=== PATIENT | female | born 1980 | race American Indian/Alaskan Native ===

== ENCOUNTER 2020-10-19 20:40 | Inpatient (IN) | payer SELFPAY ==
[2020-10-19 21:33] LABS: Basophils % (Auto) 0.3 % (0.0-1.8); Eosinophils # (Auto) 0.2 K/mm3 (0.0-0.4); Eosinophils % (Auto) 1.2 % (0.0-4.3); Hematocrit 42.9 % (30.3-42.9); Hemoglobin 13.8 gm/dl (10.1-14.3); Lymphocytes # (Auto) 2.9 K/mm3 (1.2-5.4); Lymphocytes % (Auto) 20.2 % (13.4-35.0); Mean Corpuscular HGB Conc 32 % (30-34); Mean Corpuscular Volume 79 fl (79-97); Monocytes # (Auto) 0.8 K/mm3 (0.0-0.8); Monocytes % (Auto) 5.6 % (0.0-7.3); Platelet Count 402 K/mm3 (140-440); Red Blood Count 5.45 M/mm3 (3.65-5.03); Red Cell Distribution Width 17.1 % (13.2-15.2)
[2020-10-19 21:53] LABS: Calcium 9.5 mg/dL (8.4-10.2)
[2020-10-19 21:54] LABS: Albumin 4.3 g/dL (3.9-5)
[2020-10-19] MEDS ORDERED: ONDANSETRON 4 MG/2 ML INJ IV ONE (22:25)
[2020-10-19] MEDS ORDERED: HYDROmorphone 1 MG/1 ML INJ IV ONE ×2 (22:25→23:54)
--- NOTE | 2020-10-19 22:30 | Emergency Department Report ---
ED Abdominal Pain HPI - General Chief Complaint: Abdominal Pain Stated Complaint: STOMACH CRAMPS Time Seen by Provider: 10/19/20 22:19 Source: patient Mode of arrival: Ambulatory Limitations: No Limitations - History of Present Illness Initial Comments: Chief complaint: "I am hurting really bad. It feels like preeclampsia." HPI: This is a 40-year-old female with history of -induced hypertension, preeclampsia who presents with severe epigastric pain shortly after eating meatballs. She has severe pain crampy sharp in the epigastric region rating to the back. She has nausea vomiting. She denies fever, diarrhea, constipation. She denies cough or shortness of breath. She was in her normal state of health this morning. She took a shot of alcohol this afternoon. She normally drinks on a social basis. No previous history of pancreatitis. She recently moved from [place]. She now lives in [place]. She was last treated for hypertension 3 years ago after her last . No history of dyslipidemia hypercholesterolemia. Patient does not take any medicines prescribed or [id number]. MD Complaint: abdominal pain -: Gradual, hour(s) (Several hours prior to arrival shortly after eating meatball sub) Location: epigastric Radiation: back Severity: severe Severity scale (0 -10): 10 Quality: cramping, aching Consistency: constant Improves With: nothing Worsens With: nothing Associated Symptoms: nausea, vomiting. denies: diarrhea, chills, constipation, dysuria, hematemesis - Related Data Home Medications Medication Instructions Recorded Confirmed Last Taken ALBUTEROL NEB's [Proventil 0.083% 2.5 mg IH QDAY PRN 10/20/20 10/23/20 10/22/20 NEBS] Previous Rx's Medication Instructions Recorded Last Taken Type Amoxicillin/Potassium Clav 1 each PO BID #8 tablet 10/23/20 Unknown Rx [Augmentin 875-125 Tablet] Pantoprazole Sodium [Protonix] 40 mg PO DAILY #14 10/23/20 Unknown Rx oxyCODONE /ACETAMINOPHEN [Percocet 1 tab PO BID PRN #10 tablet 10/23/20 Unknown Rx 5/325 mg] Allergies Allergy/AdvReac Type Severity Reaction Status Date / Time lisinopril Allergy Angioedema Verified 10/19/20 21:00 ED Review of Systems ROS: Stated complaint: STOMACH CRAMPS Other details as noted in HPI ED Past Medical Hx - Past Medical History Previous Medical History?: Yes Hx Hypertension: Yes Hx Asthma: Yes Additional medical history: pre-eclampsia - Surgical History Past Surgical History?: Yes Additional Surgical History: - Family History Family history: hypertension - Social History Smoking Status: Never Smoker Substance Use Type: Alcohol - Medications Home Medications: Home Medications Medication Instructions Recorded Confirmed Last Taken Type ALBUTEROL NEB's [Proventil 0.083% 2.5 mg IH QDAY PRN 10/20/20 10/23/20 10/22/20 History NEBS] Amoxicillin/Potassium Clav 1 each PO BID #8 tablet 10/23/20 Unknown Rx [Augmentin 875-125 Tablet] Pantoprazole Sodium [Protonix] 40 mg PO DAILY #14 gran 10/23/20 Unknown Rx oxyCODONE /ACETAMINOPHEN [Percocet 1 tab PO BID PRN #10 tablet 10/23/20 Unknown Rx 5/325 mg] ED Physical Exam - General Limitations: No Limitations General appearance: alert, in distress (In severe pain), other (Clammy pale) - Head Head exam: Present: atraumatic, normocephalic - Eye Eye exam: Present: normal appearance - ENT ENT exam: Present: mucous membranes moist - Neck Neck exam: Present: normal inspection, full ROM - Respiratory Respiratory exam: Present: normal lung sounds bilaterally. Absent: respiratory distress, wheezes, rales, rhonchi - Cardiovascular Cardiovascular Exam: Present: regular rate, normal rhythm, normal heart sounds. Absent: systolic murmur, diastolic murmur, rubs, gallop - GI/Abdominal GI/Abdominal exam: Present: soft, tenderness (Epigastric tenderness), normal bowel sounds. Absent: distended, guarding, rebound - Extremities Exam Extremities exam: Present: normal inspection - Neurological Exam Neurological exam: Present: alert, oriented X3 - Psychiatric Psychiatric exam: Present: normal affect, normal mood - Skin Skin exam: Present: warm, dry, intact, normal color. Absent: rash ED Course Vital Signs 10/19/20 10/19/20 10/19/20 20:58 23:08 23:16 Temperature 97.4 F L Pulse Rate 94 H Respiratory 20 Rate Blood Pressure 235/158 241/150 O2 Sat by Pulse 98 93 93 Oximetry 10/19/20 10/19/2021 23:30 23:46 00:00 Temperature Pulse Rate Respiratory Rate Blood Pressure 241/150 241/150 241/150 O2 Sat by Pulse 95 97 94 Oximetry 10/20/20 10/20/20 10/20/20 00:16 00:30 00:56 Temperature Pulse Rate Respiratory Rate Blood Pressure 241/150 241/150 241/150 O2 Sat by Pulse 91 91 93 Oximetry 10/20/20 10/20/20 10/20/20 00:58 01:00 01:02 Temperature Pulse Rate Respiratory Rate Blood Pressure 241/150 241/150 241/150 O2 Sat by Pulse 94 94 93 Oximetry 10/20/20 10/20/20 10/20/20 01:04 01:06 01:08 Temperature Pulse Rate Respiratory Rate Blood Pressure 241/150 241/150 257/167 O2 Sat by Pulse 92 94 Oximetry 10/20/20 10/20/20 10/20/20 01:10 01:12 01:14 Temperature Pulse Rate Respiratory Rate Blood Pressure 257/167 257/167 257/167 O2 Sat by Pulse 94 93 93 Oximetry 10/20/20 10/20/20 10/20/20 01:16 01:18 01:20 Temperature Pulse Rate Respiratory Rate Blood Pressure 257/167 257/167 257/167 O2 Sat by Pulse 94 95 92 Oximetry 10/20/20 10/20/20 10/20/20 01:22 01:24 01:25 Temperature Pulse Rate Respiratory Rate Blood Pressure 257/167 257/167 257/167 O2 Sat by Pulse 95 95 93 Oximetry 10/20/20 10/20/20 10/20/20 01:26 01:28 01:30 Temperature Pulse Rate Respiratory Rate Blood Pressure 153/91 153/91 153/91 O2 Sat by Pulse 96 95 93 Oximetry 10/20/20 10/20/20 10/20/20 01:32 01:34 01:36 Temperature Pulse Rate Respiratory Rate Blood Pressure 192/123 208/140 208/142 O2 Sat by Pulse 97 95 96 Oximetry 10/20/20 10/20/20 10/20/20 01:38 01:40 01:41 Temperature Pulse Rate Respiratory Rate Blood Pressure 208/142 208/142 194/130 O2 Sat by Pulse 97 96 97 Oximetry 10/20/20 10/20/20 10/20/20 01:42 01:44 01:46 Temperature Pulse Rate Respiratory Rate Blood Pressure 194/130 194/130 194/130 O2 Sat by Pulse 95 95 96 Oximetry 10/20/20 10/20/20 10/20/20 01:48 01:50 01:52 Temperature Pulse Rate Respiratory Rate Blood Pressure 257/167 211/144 211/144 O2 Sat by Pulse 95 97 95 Oximetry 10/20/20 10/20/20 10/20/20 01:54 01:56 01:58 Temperature Pulse Rate Respiratory Rate Blood Pressure 211/144 211/144 211/144 O2 Sat by Pulse 97 96 96 Oximetry 10/20/20 10/20/20 10/20/20 02:00 02:02 02:04 Temperature Pulse Rate Respiratory Rate Blood Pressure 211/144 211/144 211/144 O2 Sat by Pulse 97 96 97 Oximetry 10/20/20 10/20/20 10/20/20 02:06 02:08 02:10 Temperature Pulse Rate Respiratory Rate Blood Pressure 211/144 197/127 197/127 O2 Sat by Pulse 96 98 95 Oximetry 10/20/20 10/20/20 10/20/20 02:12 02:14 02:15 Temperature Pulse Rate Respiratory Rate Blood Pressure 197/127 197/127 173/109 O2 Sat by Pulse 97 95 95 Oximetry 10/20/20 10/20/20 10/20/20 02:16 02:18 02:20 Temperature Pulse Rate Respiratory Rate Blood Pressure 173/109 173/109 173/109 O2 Sat by Pulse 97 97 97 Oximetry 10/20/20 10/20/20 10/20/20 02:22 02:24 02:25 Temperature Pulse Rate Respiratory Rate Blood Pressure 173/109 173/109 169/105 O2 Sat by Pulse 96 97 97 Oximetry 10/20/20 10/20/20 10/20/20 02:26 02:30 02:40 Temperature Pulse Rate Respiratory Rate Blood Pressure 169/105 169/105 176/106 O2 Sat by Pulse 95 97 94 Oximetry 10/20/20 10/20/20 10/20/20 02:50 03:00 03:10 Temperature Pulse Rate Respiratory Rate Blood Pressure 176/106 176/106 176/106 O2 Sat by Pulse 96 95 95 Oximetry 10/20/20 10/20/20 10/20/20 03:20 03:30 03:40 Temperature Pulse Rate Respiratory Rate Blood Pressure 176/106 176/106 176/106 O2 Sat by Pulse 95 96 96 Oximetry 10/20/20 03:50 Temperature Pulse Rate Respiratory Rate Blood Pressure 215/126 O2 Sat by Pulse 97 Oximetry ED Medical Decision Making - Lab Data Result diagrams: 10/23/20 09:47 10/22/20 04:48 - Radiology Data Radiology results: report reviewed - Medical Decision Making Acute pancreatitis: Differential diagnosis includes biliary disease, alcohol- related, autoimmune disease, hypertriglyceridemia, medications. ROSEBUD score 11 points, associated with approximate 7% risk of mortality Critical care attestation.: If time is entered above; I have spent that time in minutes in the direct care of this critically ill patient, excluding procedure time. ED Disposition Clinical Impression: Acute pancreatitis Disposition: DC-01 TO HOME OR SELFCARE Is pt being admited?: Yes Does the pt Need Aspirin: No Condition: Stable
[2020-10-19] MEDS ORDERED: SODIUM CHLORIDE 0.9% 1000 ML 1,000 ML IV ONE (22:37)
--- NOTE | 2020-10-19 23:22 | Cat Scan Report ---
CT ABDOMEN AND PELVIS WITHOUT CONTRAST INDICATION / CLINICAL INFORMATION: Pancreatitis severe epigastric pain. TECHNIQUE: Axial CT images were obtained through the abdomen and pelvis without IV contrast. All CT scans at this location are performed using CT dose reduction for ALARA by means of automated exposure control. COMPARISON: None available. FINDINGS: FINDINGS: LOWER CHEST: No significant abnormality LIVER: Hepatic steatosis with hepatomegaly. GALLBLADDER/BILIARY TREE: No significant abnormality PANCREAS: Moderate peripancreatic inflammatory stranding and unencapsulated fluid surrounds the pancr eas and extends to involve the right paracolic gutter. No organized collection. SPLEEN: No significant abnormality ADRENALS: No significant abnormality KIDNEYS / URETER: No significant abnormality URINARY BLADDER: No significant abnormality REPRODUCTIVE ORGANS: No significant abnormality STOMACH / BOWEL: No significant abnormality. The appendix is not visualized. LYMPH NODES: No significant adenopathy. VASCULATURE: No significant abnormality. OTHER: No free air, free fluid, or focal fluid collection is identified. SKELETAL SYSTEM: No acute osseous findings. IMPRESSION: 1. Moderate peripancreatic inflammatory stranding and unencapsulated peripancreatic fluid, compatible with acute interstitial edematous pancreatitis. No organized collection. 2. Hepatic steatosis with hepatomegaly. Signer Name: Indra Benítez MD Signed: 10/19/2020 11:17 PM Workstation Name: [id number]
[2020-10-20] MEDS ORDERED: SODIUM CHLORIDE 0.9% 1000 ML 1,000 ML IV ONE (00:06)
[2020-10-20] MEDS ORDERED: ACETAMINOPHEN 325 MG TAB PO PRN (00:23)
--- NOTE | 2020-10-20 00:33 | History and Physical Report ---
History of Present Illness Date of examination: 10/20/20 Date of admission: 10/20/2020 Chief complaint: Nausea and vomiting Abdominal pain History of present illness: 40-year-old -Prydeinig female with known history of -induced hypertension, preeclampsia presents to the emergency room today complaining of severe abdominal pain after eating meatballs. Abdominal pain is said to be epigastric, crampy and sharp. She denies any fever or chills, no chest pain or shortness of breath. Patient denies any headache or dizziness and also denies any diaphoresis. She admits that she took a shot of vodka sometime this afternoon but symptoms started after eating the meatballs. Patient denies any previous history of pancreatitis. She has not been on any blood pressure medications for years as she believes blood pressure was -induced. She does not check her blood pressure at home. Upon arrival in the emergency room patient was quite hypertensive with systolic in the 200s and diastolic in the low 100s. She had IV labetalol and subsequent ly had IV hydralazine with improvement in her blood pressure. Patient recently moved from [place] and now lives in [facility]. Work-up in the emergency room today reveals elevated lipase level of 5385, hypokalemia of 3.1, WBC of 14.6. CT scan of the abdomen and pelvis, findings are consistent with acute interstitial edematous pancreatitis. No organized collection. There is hepatic steatosis with hepatomegaly. Patient has been admitted with acute pancreatitis. Past History Past Medical History: hypertension, other (Asthma, history of pre-eclampsia) Past Surgical History: Social history: alcohol abuse (Drinks alcohol socially) Family history: hypertension Medications and Allergies Allergies Allergy/AdvReac Type Severity Reaction Status Date / Time lisinopril Allergy Angioedema Verified 10/19/20 21:00 Active Meds: Active Medications Acetaminophen (Acetaminophen 325 Mg Tab) 650 mg PO Q4H PRN PRN Reason: Pain MILD(1-3)/Fever >100.5/RIVERS Hydromorphone HCl (Hydromorphone 1 Mg/1 Ml Inj) 1 mg IV Q4H PRN PRN Reason: Pain , Severe (7-10) Sodium Chloride (Nacl 0.9% 1000 Ml) 1,000 mls @ 999 mls/hr IV BOLUS ONE Stop: 07/12/21 01:06 Sodium Chloride (Nacl 0.9% 1000 Ml) 1,000 mls @ 150 mls/hr IV DIRECT RAJEEV Magnesium Hydroxide (Magnesium Hydroxide (Mom) Oral Liqd Udc) 30 ml PO Q4H PRN PRN Reason: Constipation Morphine Sulfate (Morphine 2 Mg/1 Ml Inj) 2 mg IV Q4H PRN PRN Reason: Pain, Moderate (4-6) Ondansetron HCl (Ondansetron 4 Mg/2 Ml Inj) 4 mg IV Q8H PRN PRN Reason: Nausea And Vomiting Sodium Chloride (Sodium Chloride 0.9% 10 Ml Flush Syringe) 10 ml IV BID RAJEEV Sodium Chloride (Sodium Chloride 0.9% 10 Ml Flush Syringe) 10 ml IV PRN PRN PRN Reason: LINE FLUSH Review of Systems Constitutional: no fever, no chills Ears, nose, mouth and throat: no nasal congestion, no sore throat Cardiovascular: no chest pain, no palpitations Respiratory: no cough, no shortness of breath Gastrointestinal: abdominal pain, nausea, vomiting, no constipation, no BRBPR, no melena, no loss of appetite Genitourinary Female: no pelvic pain, no flank pain, no dysuria, no hematuria Musculoskeletal: no neck pain, no low back pain Integumentary: no rash, no pruritis Neurological: no headaches, no confusion Psychiatric: no anxiety, no depression Endocrine: no polyphagia, no polydipsia, no polyuria, no nocturia Exam - Constitutional Vitals: Temp Pulse Resp BP Pulse Ox 97.4 F L 94 H 20 235/158 98 10/19/20 20:58 10/19/20 20:58 10/19/20 20:58 10/19/20 20:58 10/19/20 20:58 General appearance: Present: no acute distress, well-nourished, obese - EENT Eyes: Present: PERRL, EOM intact. Absent: scleral icterus ENT: hearing intact, clear oral mucosa, dentition normal - Neck Neck: Present: supple, normal ROM - Respiratory Respiratory effort: normal Respiratory: bilateral: CTA - Cardiovascular Rhythm: regular Heart Sounds: Present: S1 & S2. Absent: gallop, systolic murmur, diastolic murmur, rub, click - Extremities Extremities: no ischemia, pulses intact, pulses symmetrical, No edema, normal temperature, normal color, Full ROM Peripheral Pulses: within normal limits - Abdominal General gastrointestinal: Present: soft, tender (Tenderness in the epigastric region, no guarding and no rebound tenderness), non-distended, normal bowel sounds. Absent: mass - Integumentary Integumentary: Present: clear, warm, dry. Absent: rash - Musculoskeletal Musculoskeletal: strength equal bilaterally - Psychiatric Psychiatric: appropriate mood/affect, intact judgment & insight, memory intact, cooperative - Neurologic Neurologic: CNII-XII intact, no focal deficits, moves all extremities Results - Labs CBC & Chem 7: 10/19/20 21:17 10/19/20 21:17 Labs: Abnormal lab results 10/19/20 10/19/20 Range/Units 21:17 21:17 WBC 14.6 H (4.5-11.0) K/mm3 RBC 5.45 H (3.65-5.03) M/mm3 MCH 25 L (28-32) pg RDW 17.1 H (13.2-15.2) % Seg Neutrophils % 72.7 H (40.0-70.0) % Seg Neutrophils # 10.6 H (1.8-7.7) K/mm3 Potassium 3.1 L (3.6-5.0) mmol/L Creatinine 1.4 H (0.6-1.2) mg/dL Glucose 151 H (65-100) mg/dL AST 68 H (5-40) units/L Alkaline Phosphatase 145 H (35-129) units/L Lipase 5385 H (13-60) units/L Assessment and Plan - Patient Problems (1) Acute pancreatitis Current Visit: Yes Status: Acute Plan to address problem: Patient made n.p.o. She has been commenced on IV fluid and IV analgesic medication. Will monitor lipase levels. (2) Hypertension Current Visit: Yes Status: Acute Plan to address problem: Patient has not been compliant with blood pressure medications. She has been placed on IV hydralazine meanwhile. May require routine blood pressure medications prior to discharge. (3) Hypokalemia Current Visit: Yes Status: Acute Plan to address problem: Potassium will be repleted. We will monitor chemistry. (4) Leukocytosis Current Visit: Yes Status: Acute Plan to address problem: Possibly reactive. We will monitor labs. (5) DVT prophylaxis Current Visit: Yes Status: Acute Plan to address problem: Patient placed on subcutaneous heparin. (6) Full code status Current Visit: Yes Status: Acute Plan to address problem: Patient is a full code.
[2020-10-20] MEDS ORDERED: hydrALAZINE 20 MG/1 ML INJ IV ONE (01:45)
[2020-10-20] MEDS ORDERED: hydrALAZINE 20 MG/1 ML INJ ONE (01:46)
[2020-10-20] MEDS: MORPHINE 2 MG/1 ML INJ IV PRN ×4 (02:37→16:39)
[2020-10-20] MEDS ORDERED: hydrALAZINE 20 MG/1 ML INJ IV PRN (02:55)
[2020-10-20] MEDS: HYDROmorphone 1 MG/1 ML INJ IV PRN ×5 (04:34→23:05)
[2020-10-20] MEDS: ONDANSETRON 4 MG/2 ML INJ IV PRN (04:38)
[2020-10-20] MEDS: SODIUM CHLORIDE 0.9% 1000 ML 1,000 ML IV SCH ×3 (04:45→23:04)
[2020-10-20] MEDS: POTASSIUM CHLORIDE 10 MEQ 10 MEQ/100 ML BAG IV SCH ×2 (04:47→07:09)
[2020-10-20] MEDS: HEPARIN 5,000 UNIT/1 ML VIAL SUB-Q SCH ×3 (06:05→21:27)
[2020-10-20] MEDS: hydrALAZINE 20 MG/1 ML INJ IV PRN ×3 (07:08→16:39)
--- NOTE | 2020-10-20 09:30 | Gastroenterology Consultation ---
History of Present Illness - Reason for Consult Consult date: 10/20/20 Panceatitis Requesting physician: TANNA ALATORRE - History of Present Illness The patient is a 40 yo female admitted with acute pancreatitis. She has no hx of this (the sx felt like her prior pre-eclampsia/hyperemesis, and why she came to the ER). She had severe epigastric pain with N/V, but today, the pain is markedly better, and the vomiting has totally resolved (tolerating ice chips). She has no diarrhea or fevers, and was on no new medications. She drinks minimal EtOH (once a week). Of note there is no family hx of GB/GS disease, but a sister has chronic pancreatitis of unk cause (not a heavy drinker either). The patient does not take OTC/herbals. The GB was normal on the CT scan. Past History Past Medical History: hypertension, other (Asthma, history of pre- eclampsia/hyperemesis, Obesity) Past Surgical History: Social history: alcohol abuse (Drinks alcohol socially) Family history: hypertension Medications and Allergies Allergies Allergy/AdvReac Type Severity Reaction Status Date / Time lisinopril Allergy Angioedema Verified 10/19/20 21:00 Home Medications Medication Instructions Recorded Confirmed Last Taken Type ALBUTEROL NEB's [Proventil 0.083% 2.5 mg IH PRN 10/20/20 10/19/20 History NEBS] Active Meds: Active Medications Acetaminophen (Acetaminophen 325 Mg Tab) 650 mg PO Q4H PRN PRN Reason: Pain MILD(1-3)/Fever >100.5/RIVERS Heparin Sodium (Porcine) (Heparin 5,000 Unit/1 Ml Vial) 5,000 unit SUB-Q Q8HR RAJEEV Last Admin: 10/20/20 06:05 Dose: 5,000 unit Documented by: Hydralazine HCl (Hydralazine 20 Mg/1 Ml Inj) 10 mg IV Q4H PRN PRN Reason: Blood Pressure Last Admin: 10/20/20 07:08 Dose: 10 mg Documented by: Hydromorphone HCl (Hydromorphone 1 Mg/1 Ml Inj) 1 mg IV Q4H PRN PRN Reason: Pain , Severe (7-10) Last Admin: 10/20/20 08:44 Dose: 1 mg Documented by: Sodium Chloride (Nacl 0.9% 1000 Ml) 1,000 mls @ 150 mls/hr IV DIRECT RAJEEV Last Admin: 10/20/20 04:45 Dose: 150 mls/hr Documented by: Magnesium Hydroxide (Magnesium Hydroxide (Mom) Oral Liqd Udc) 30 ml PO Q4H PRN PRN Reason: Constipation Morphine Sulfate (Morphine 2 Mg/1 Ml Inj) 2 mg IV Q4H PRN PRN Reason: Pain, Moderate (4-6) Last Admin: 10/20/20 07:08 Dose: 2 mg Documented by: Ondansetron HCl (Ondansetron 4 Mg/2 Ml Inj) 4 mg IV Q8H PRN PRN Reason: Nausea And Vomiting Last Admin: 10/20/20 04:38 Dose: 4 mg Documented by: Sodium Chloride (Sodium Chloride 0.9% 10 Ml Flush Syringe) 10 ml IV BID RAJEEV Sodium Chloride (Sodium Chloride 0.9% 10 Ml Flush Syringe) 10 ml IV PRN PRN PRN Reason: LINE FLUSH I HAVE REVIEWED/RECONCILED MEDICATIONS Review of Systems - Review of Systems All systems: negative (as noted in the HPI) Exam - Constitutional Vital Signs: Temp Pulse Resp BP Pulse Ox 98.1 F 108 H 16 203/140 96 10/20/20 04:22 10/20/20 07:08 10/20/20 04:22 10/20/20 07:08 10/20/20 04:22 General appearance: no acute distress - EENT Eyes: PERRL, EOM intact ENT: hearing intact, clear oral mucosa, dentition normal - Neck Neck: supple, normal ROM - Respiratory Respiratory effort: normal Respiratory: bilateral: CTA - Cardiovascular Rhythm: regular Heart Sounds: Present: S1 & S2 - Gastrointestinal General gastrointestinal: Present: soft, tender (Minimal tenderness), non- distended - Integumentary Integumentary: Present: clear, warm, dry - Neurologic Neurological: alert and oriented x3 - Labs CBC & Chem 7: 10/19/20 21:17 10/19/20 21:17 Lab Results: Laboratory Results - last 24 hr 10/19/20 10/19/20 10/19/20 21:17 21:17 21:17 WBC 14.6 H RBC 5.45 H Hgb 13.8 Hct 42.9 MCV 79 MCH 25 L MCHC 32 RDW 17.1 H Plt Count 402 Lymph % (Auto) 20.2 [place] % (Auto) 5.6 Eos % (Auto) 1.2 Baso % (Auto) 0.3 Lymph # (Auto) 2.9 [place] # (Auto) 0.8 Eos # (Auto) 0.2 Baso # (Auto) 0.0 Seg Neutrophils % 72.7 H Seg Neutrophils # 10.6 H Sodium 141 Potassium 3.1 L Chloride 98.6 Carbon Dioxide 27 Anion Gap 19 BUN 16 Creatinine 1.4 H Estimated GFR 41 BUN/Creatinine Ratio 11 Glucose 151 H Calcium 9.5 Total Bilirubin 0.40 AST 68 H ALT 43 Alkaline Phosphatase 145 H Total Protein 7.8 Albumin 4.3 Albumin/Globulin Ratio 1.2 Lipase 5385 H HCG, Qual Negative Assessment and Plan - Patient Problems (1) Acute pancreatitis Current Visit: Yes Status: Acute Plan to address problem: - Acute onset and rapid resolution suggests gallstone (passed) or possibly Sphincter of Oddi. Family hx is somewhat concerning (sister with chronic pancreatitis). - Will send VITALIY, and check RUQ US. - If US negative, consider advance diet. - If US is non-diagnostic, will get MRCP to rule out pancreas divisum. - OK to have clear liquids today after US, since symptoms markedly better.
--- NOTE | 2020-10-20 10:59 | Ultrasound Report ---
ULTRASOUND ABDOMEN, LIMITED (RIGHT UPPER QUADRANT) INDICATION: pancreatitis. Abdominal pain COMPARISON: None available. FINDINGS: Pancreas: poorly visualized from overlying bowel gas. Liver: Diffusely echogenic.. Gallbladder: Normal. Bile ducts: Normal. Common Bile Duct measures 2 mm. Free fluid: None. Additional Findings: None. IMPRESSION: The pancreas is poorly visualized from overlying bowel gas. Fatty liver. Signer Name: Zack Carney MD Signed: 10/20/2020 10:55 AM Workstation Name: [email or web address]
--- NOTE | 2020-10-20 17:38 | Event Note ---
Date: 10/20/20 Acute pancreatitis Clears started Pain better GI consult appreciated Check Lipase and Amylase in AM
--- NOTE | 2020-10-20 18:01 | Electrocardiograph Report ---
[facility] Test Date: 2020-10-19 Test Time: 21:14:38 Pat Name: JEREMIAS MITTAL Department: Room: 18 1 Gender: F Medical Asst: : 1980 Requested By: SNOW ZELAYA Order Number: [id number] Reading MD: David Markham Measurements Intervals [place] Rate: 92 P: 54 MO: 131 QRS: 35 QRSD: 87 T: 160 QT: 369 QTc: 457 Interpretive Statements Sinus rhythm No previous ECG available for comparison Electronically Signed On 10-20-2020 18:01:15 EDT by David Markham
[2020-10-21] MEDS: MORPHINE 2 MG/1 ML INJ IV PRN ×3 (02:41→22:46)
[2020-10-21] MEDS: HYDROmorphone 1 MG/1 ML INJ IV PRN ×4 (04:25→20:07)
[2020-10-21] MEDS: hydrALAZINE 20 MG/1 ML INJ IV PRN ×2 (04:33→14:40)
[2020-10-21] MEDS: HEPARIN 5,000 UNIT/1 ML VIAL SUB-Q SCH ×3 (05:27→22:43)
[2020-10-21] MEDS: SODIUM CHLORIDE 0.9% 1000 ML 1,000 ML IV SCH ×3 (06:11→20:11)
[2020-10-21 09:18] LABS: Hematocrit 41.4 % (30.3-42.9); Hemoglobin 13.2 gm/dl (10.1-14.3); Mean Corpuscular HGB Conc 32 % (30-34); Mean Corpuscular Volume 79 fl (79-97); Platelet Count 276 K/mm3 (140-440); Red Blood Count 5.26 M/mm3 (3.65-5.03); Red Cell Distribution Width 17.4 % (13.2-15.2)
[2020-10-21 09:35] LABS: INR 1.08 (0.87-1.13)
[2020-10-21 10:16] LABS: Albumin 3.3 g/dL (3.9-5); C-Reactive Protein 33.5 mg/dL (0.00-1.30); Calcium 7.5 mg/dL (8.4-10.2)
[2020-10-21] MEDS: MAGNESIUM HYDROXIDE (MOM) ORAL LIQD UDC PO PRN (11:36)
--- NOTE | 2020-10-21 12:12 | Gastroenterology Progress Note ---
Assessment and Plan - Patient Problems (1) Acute pancreatitis Current Visit: Yes Status: Acute Plan to address problem: - Acute onset and rapid resolution suggests gallstone (passed) or possibly Sphincter of Oddi. Family hx is somewhat concerning (sister with chronic pancreatitis). RUQ US (-) for retained stone. - Will send VITALIY. - Will start empiric zosyn given worsening inflammatory markers. - If US is non-diagnostic, will get MRCP to rule out pancreas divisum when clinically improved and stable to lay flat. - OK to have clear liquids but do not advance further. Subjective Date of service: 10/21/20 Principal diagnosis: Pancreatitis Interval history: The patient tolerated her clear liquids without vomiting, and says her pain is improved. She had no fevers, but says she feels hot. Objective - Constitutional Vitals: Temp Pulse Resp BP Pulse Ox 98.5 F 120 H 18 154/99 95 10/21/20 11:15 10/21/20 11:15 10/21/20 11:15 10/21/20 11:15 10/21/20 11:15 General appearance: mild distress - Respiratory Respiratory effort: normal Respiratory: bilateral: CTA - Cardiovascular Rhythm: regular Heart Sounds: Present: S1 & S2 - Gastrointestinal General gastrointestinal: Present: soft, tender (No peritoneal signs), non- distended - Labs CBC & Chem 7: 10/21/20 08:39 10/21/20 08:39 Labs: Laboratory Results - last 24 hr 10/21/20 10/21/20 10/21/20 08:39 08:39 08:39 WBC 22.7 H RBC 5.26 H Hgb 13.2 Hct 41.4 MCV 79 MCH 25 L MCHC 32 RDW 17.4 H Plt Count 276 Seg Neutrophils % School Nurse PT 14.5 INR 1.08 Sodium Potassium Chloride Carbon Dioxide Anion Gap BUN Creatinine Estimated GFR BUN/Creatinine Ratio Glucose Calcium Total Bilirubin AST ALT Alkaline Phosphatase C-Reactive Protein Total Protein Albumin Albumin/Globulin Ratio Amylase 899 H Lipase 10/21/20 08:39 WBC RBC Hgb Hct MCV MCH MCHC RDW Plt Count Seg Neutrophils % PT INR Sodium 137 Potassium 3.8 D Chloride 97.0 L Carbon Dioxide 22 Anion Gap 22 BUN 33 H Creatinine 3.2 H D Estimated GFR 19 BUN/Creatinine Ratio 10 Glucose 124 H Calcium 7.5 L D Total Bilirubin 1.00 AST 23 ALT 16 Alkaline Phosphatase 96 C-Reactive Protein 33.50 H Total Protein 6.8 Albumin 3.3 L Albumin/Globulin Ratio 0.9 Amylase Lipase 1762 H
[2020-10-21 12:56] LABS: Anisocytosis 1+; Band Neutrophils # (Manual) 3.2 K/mm3; Hypochromasia 1+; Platelet Estimate Consistent w Auto; Total Cells Counted 100
[2020-10-21] MEDS: PIPERACILLIN/TAZOBACTAM 3.375 3.375 GM/50 ML BAG IV SCH ×2 (15:51→22:49)
--- NOTE | 2020-10-21 20:15 | Progress Note ---
Assessment and Plan Assessment and plan: -- Acute pancreatitis Current Visit: Yes Status: Acute Clear liquids advance to full liquids as tolerated Continue IV fluid and IV analgesic medication. Will monitor lipase levels. Lipase trending down; 5375 -8147 --Hypertension/moderate control Current Visit: Yes Status: Acute Continue current antihypertensives As needed hydralazine, closely monitor -- Hypokalemia Current Visit: Yes Status: Acute Potassium repleted monitor electrolytes Check magnesium -- Leukocytosis Current Visit: Yes Status: Acute Possibly reactive. We will monitor labs. --DVT prophylaxis Current Visit: Yes Status: Acute Patient placed on subcutaneous heparin. -- Full code status Current Visit: Yes Status: Acute Patient is a full code. Closely monitor patient and adjust the management as needed Plan of care reviewed with the patient and her nurse GI evaluation noted and appreciated History Interval history: I have seen and examined the patient at the bedside Patient's chart and medications reviewed Patient continues to have abdominal pain some nausea Vital signs noted GI evaluation and recommendations noted and appreciated Hospitalist Physical - Constitutional Vitals: Temp Pulse Resp BP Pulse Ox 98.5 F 116 H 18 162/88 96 10/21/20 14:13 10/21/20 16:15 10/21/20 14:13 10/21/20 16:15 10/21/20 14:13 General appearance: Present: no acute distress, well-nourished, obese (Morbidly obese) - EENT Eyes: Present: PERRL, EOM intact - Neck Neck: Present: supple, normal ROM - Respiratory Respiratory effort: normal Respiratory: bilateral: diminished, negative: rales, rhonchi, wheezing - Cardiovascular Rhythm: regular Heart Sounds: Present: S1 & S2 - Extremities Extremities: no ischemia, No edema - Abdominal General gastrointestinal: soft, tender (No guarding no rigidity, vague tenderness all over) - Integumentary Integumentary: Present: clear, warm - Psychiatric Psychiatric: appropriate mood/affect, cooperative - Neurologic Neurologic: CNII-XII intact, moves all extremities Results - Labs CBC & Chem 7: 10/21/20 08:39 10/21/20 08:39 Labs: Laboratory Last Values WBC 22.7 K/mm3 (4.5-11.0) H 10/21/20 08:39 RBC 5.26 M/mm3 (3.65-5.03) H 10/21/20 08:39 Hgb 13.2 gm/dl (10.1-14.3) 10/21/20 08:39 Hct 41.4 % (30.3-42.9) 10/21/20 08:39 MCV 79 fl (79-97) 10/21/20 08:39 MCH 25 pg (28-32) L 10/21/20 08:39 MCHC 32 % (30-34) 10/21/20 08:39 RDW 17.4 % (13.2-15.2) H 10/21/20 08:39 Plt Count 276 K/mm3 (140-440) 10/21/20 08:39 Lymph % (Auto) 20.2 % (13.4-35.0) 10/19/20 21:17 Antelope % (Auto) 5.6 % (0.0-7.3) 10/19/20 21:17 Eos % (Auto) 1.2 % (0.0-4.3) 10/19/20 21:17 Baso % (Auto) 0.3 % (0.0-1.8) 10/19/20 21:17 Lymph # (Auto) 2.9 K/mm3 (1.2-5.4) 10/19/20 21:17 [place] # (Auto) 0.8 K/mm3 (0.0-0.8) 10/19/20 21:17 Eos # (Auto) 0.2 K/mm3 (0.0-0.4) 10/19/20 21:17 Baso # (Auto) 0.0 K/mm3 (0.0-0.1) 10/19/20 21:17 Add Manual Diff Complete 10/21/20 08:39 Total Counted 100 10/21/20 08:39 Seg Neutrophils % Bending Shed Worker 10/21/20 08:39 Seg Neuts % (Manual) 84.0 % (40.0-70.0) H 10/21/20 08:39 Band Neutrophils % 14.0 % 10/21/20 08:39 Lymphocytes % (Manual) 1.0 % (13.4-35.0) L 10/21/20 08:39 Monocytes % (Manual) 1.0 % (0.0-7.3) 10/21/20 08:39 Nucleated RBC % Not Reportable 10/21/20 08:39 Seg Neutrophils # 10.6 K/mm3 (1.8-7.7) H 10/19/20 21:17 Seg Neutrophils # Man 19.1 K/mm3 (1.8-7.7) H 10/21/20 08:39 Band Neutrophils # 3.2 K/mm3 10/21/20 08:39 Lymphocytes # (Manual) 0.2 K/mm3 (1.2-5.4) L 10/21/20 08:39 Abs React Lymphs (Man) 0.0 K/mm3 10/21/20 08:39 Monocytes # (Manual) 0.2 K/mm3 (0.0-0.8) 10/21/20 08:39 Eosinophils # (Manual) 0.0 K/mm3 (0.0-0.4) 10/21/20 08:39 Basophils # (Manual) 0.0 K/mm3 (0.0-0.1) 10/21/20 08:39 Metamyelocytes # 0.0 K/mm3 10/21/20 08:39 Myelocytes # 0.0 K/mm3 10/21/20 08:39 Promyelocytes # 0.0 K/mm3 10/21/20 08:39 Blast Cells # 0.0 K/mm3 10/21/20 08:39 WBC Morphology Not Reportable 10/21/20 08:39 Hypersegmented Neuts Not Reportable 10/21/20 08:39 Hyposegmented Neuts Not Reportable 10/21/20 08:39 Hypogranular Neuts Not Reportable 10/21/20 08:39 Smudge Cells Not Reportable 10/21/20 08:39 Toxic Granulation Not Reportable 10/21/20 08:39 Toxic Vacuolation Not Reportable 10/21/20 08:39 Dohle Bodies Not Reportable 10/21/20 08:39 Pelger-Huet Anomaly Not Reportable 10/21/20 08:39 Samantha Rods Not Reportable 10/21/20 08:39 Platelet Estimate Consistent w auto 10/21/20 08:39 Clumped Platelets Not Reportable 10/21/20 08:39 Plt Clumps, EDTA Not Reportable 10/21/20 08:39 Large Platelets Not Reportable 10/21/20 08:39 Giant Platelets Not Reportable 10/21/20 08:39 Platelet Satelliting Not Reportable 10/21/20 08:39 Plt Morphology Comment Not Reportable 10/21/20 08:39 RBC Morphology Not Reportable 10/21/20 08:39 Dimorphic RBCs Not Reportable 10/21/20 08:39 Polychromasia Not Reportable 10/21/20 08:39 Hypochromasia 1+ 10/21/20 08:39 Poikilocytosis Not Reportable 10/21/20 08:39 Anisocytosis 1+ 10/21/20 08:39 Microcytosis Not Reportable 10/21/20 08:39 Macrocytosis Not Reportable 10/21/20 08:39 Spherocytes Not Reportable 10/21/20 08:39 Pappenheimer Bodies Not Reportable 10/21/20 08:39 Sickle Cells Not Reportable 10/21/20 08:39 Target Cells Not Reportable 10/21/20 08:39 Tear Drop Cells Not Reportable 10/21/20 08:39 Ovalocytes Not Reportable 10/21/20 08:39 Helmet Cells Not Reportable 10/21/20 08:39 [place] Bodies Not Reportable 10/21/20 08:39 [place] Rings Not Reportable 10/21/20 08:39 [place] Cells Not Reportable 10/21/20 08:39 Bite Cells Not Reportable 10/21/20 08:39 Crenated Cell Not Reportable 10/21/20 08:39 Elliptocytes Not Reportable 10/21/20 08:39 Acanthocytes (Spur) Not Reportable 10/21/20 08:39 Rouleaux Not Reportable 10/21/20 08:39 Hemoglobin C Crystals Not Reportable 10/21/20 08:39 Schistocytes Not Reportable 10/21/20 08:39 Malaria parasites Not Reportable 10/21/20 08:39 Frank Bodies Not Reportable 10/21/20 08:39 Hem Pathologist Commnt No 10/21/20 08:39 PT 14.5 Sec. (12.2-14.9) 10/21/20 08:39 INR 1.08 (0.87-1.13) 10/21/20 08:39 Sodium 137 mmol/L (137-145) 10/21/20 08:39 Potassium 3.8 mmol/L (3.6-5.0) D 10/21/20 08:39 Chloride 97.0 mmol/L (98-107) L 10/21/20 08:39 Carbon Dioxide 22 mmol/L (22-30) 10/21/20 08:39 Anion Gap 22 mmol/L 10/21/20 08:39 BUN 33 mg/dL (7-17) H 10/21/20 08:39 Creatinine 3.2 mg/dL (0.6-1.2) H D 10/21/20 08:39 Estimated GFR 19 ml/min 10/21/20 08:39 BUN/Creatinine Ratio 10 % 10/21/20 08:39 Glucose 124 mg/dL (65-100) H 10/21/20 08:39 Calcium 7.5 mg/dL (8.4-10.2) L D 10/21/20 08:39 Total Bilirubin 1.00 mg/dL (0.1-1.2) 10/21/20 08:39 AST 23 units/L (5-40) 10/21/20 08:39 ALT 16 units/L (7-56) 10/21/20 08:39 Alkaline Phosphatase 96 units/L (35-129) 10/21/20 08:39 C-Reactive Protein 33.50 mg/dL (0.00-1.30) H 10/21/20 08:39 Total Protein 6.8 g/dL (6.3-8.2) 10/21/20 08:39 Albumin 3.3 g/dL (3.9-5) L 10/21/20 08:39 Albumin/Globulin Ratio 0.9 % 10/21/20 08:39 Amylase 899 units/L (27-131) H 10/21/20 08:39 Lipase 1762 units/L (13-60) H 10/21/20 08:39 HCG, Qual Negative (Negative) 10/19/20 21:17 Thacker/IV: Voiding Method Toilet Active Medications - Current Medications Current Medications: Generic Name Dose Route Start Last Admin Trade Name Freq PRN Reason Stop Dose Admin Acetaminophen 650 mg 10/20/20 00:23 Acetaminophen 325 Mg Tab PO Q4H PRN Pain MILD(1-3)/Fever >100.5/RIVERS Heparin Sodium (Porcine) 5,000 unit 10/20/20 06:00 10/21/20 14:42 Heparin 5,000 Unit/1 Ml Vial SUB-Q 5,000 unit Q8HR RAJEEV Administration Hydralazine HCl 10 mg 10/20/20 02:58 10/21/20 14:40 Hydralazine 20 Mg/1 Ml Inj IV 10 mg Q4H PRN Administration Blood Pressure Hydromorphone HCl 1 mg 10/20/20 00:23 10/21/20 20:07 Hydromorphone 1 Mg/1 Ml Inj IV 1 mg Q4H PRN Administration Pain , Severe (7-10) Sodium Chloride 1,000 mls @ 150 mls/hr 10/20/20 00:30 10/21/20 20:11 Nacl 0.9% 1000 Ml IV 150 mls/hr DIRECT RAJEEV Administration Piperacillin Sod/Tazobactam Sod 3.375 gm in 50 mls @ 100 mls/hr 10/21/20 14:00 10/21/20 15:51 Zosyn/Ns 3.375gm/50ml IV 100 mls/hr Q8HR RAJEEV Administration Protocol Magnesium Hydroxide 30 ml 10/20/20 00:23 10/21/20 11:36 Magnesium Hydroxide (Mom) Oral Liqd Udc PO 30 ml Q4H PRN Administration Constipation Morphine Sulfate 2 mg 10/20/20 00:23 10/21/20 11:49 Morphine 2 Mg/1 Ml Inj IV 2 mg Q4H PRN Administration Pain, Moderate (4-6) Ondansetron HCl 4 mg 10/20/20 00:23 10/20/20 04:38 Ondansetron 4 Mg/2 Ml Inj IV 4 mg Q8H PRN Administration Nausea And Vomiting Sodium Chloride 10 ml 10/20/20 10:00 10/21/20 11:38 Sodium Chloride 0.9% 10 Ml Flush Syringe IV Not Given BID RAJEEV Sodium Chloride 10 ml 10/20/20 00:23 Sodium Chloride 0.9% 10 Ml Flush Syringe IV PRN PRN LINE FLUSH
[2020-10-22] MEDS: HYDROmorphone 1 MG/1 ML INJ IV PRN ×4 (01:06→19:57)
[2020-10-22] MEDS ORDERED: dilTIAZem 60 MG TAB PO ONE (01:30)
[2020-10-22] MEDS ORDERED: dilTIAZem 25 MG/5 ML INJ IV ONE (03:40)
[2020-10-22] MEDS: MORPHINE 2 MG/1 ML INJ IV PRN ×4 (04:01→22:27)
[2020-10-22 05:22] LABS: Basophils % (Auto) 0.2 % (0.0-1.8); Hematocrit 36.9 % (30.3-42.9); Hemoglobin 11.8 gm/dl (10.1-14.3); Lymphocytes # (Auto) 0.9 K/mm3 (1.2-5.4); Lymphocytes % (Auto) 4.9 % (13.4-35.0); Mean Corpuscular HGB Conc 32 % (30-34); Mean Corpuscular Volume 79 fl (79-97); Monocytes # (Auto) 1.1 K/mm3 (0.0-0.8); Platelet Count 234 K/mm3 (140-440); Red Cell Distribution Width 17.7 % (13.2-15.2)
[2020-10-22 05:40] LABS: Albumin 2.9 g/dL (3.9-5); Calcium 6.6 mg/dL (8.4-10.2)
[2020-10-22] MEDS: PIPERACILLIN/TAZOBACTAM 3.375 3.375 GM/50 ML BAG IV SCH ×3 (06:10→22:33)
[2020-10-22] MEDS: MAGNESIUM HYDROXIDE (MOM) ORAL LIQD UDC PO PRN (06:10)
[2020-10-22] MEDS: HEPARIN 5,000 UNIT/1 ML VIAL SUB-Q SCH ×3 (06:11→22:34)
[2020-10-22] MEDS: SODIUM CHLORIDE 0.9% 1000 ML 1,000 ML IV SCH ×2 (08:49→22:39)
--- NOTE | 2020-10-22 09:38 | Gastroenterology Progress Note ---
Assessment and Plan - Patient Problems (1) Acute pancreatitis Current Visit: Yes Status: Acute Plan to address problem: - Acute onset and rapid resolution suggests gallstone (passed) or possibly Sphincter of Oddi. Family hx is somewhat concerning (sister with chronic pancreatitis). RUQ US (-) for retained stone. - Will monitor VITALIY. - Will continue empiric zosyn given severe inflammatory markers. - If US is non-diagnostic, will get MRCP to rule out pancreas divisum when clinically improved and stable to lay flat. - OK to have clear liquids but do not advance further unless labs much better tomorrow. (2) VERO (acute kidney injury) Current Visit: Yes Status: Acute Plan to address problem: - Likely ATN from her acute inflammatory state; Creatinine has plateaued. - Will defer to IMS. Subjective Date of service: 10/22/20 Principal diagnosis: Pancreatitis Interval history: The patient is tolerating her liquid diet without N/V, and had no fevers overnight. She does complain of being swollen from her IV fluids, but is urinating. She says her abdominal pain is improving slowly. Objective - Constitutional Vitals: Temp Pulse Resp BP Pulse Ox 98.3 F 106 H 16 146/86 96 10/22/20 07:34 10/22/20 07:34 10/22/20 07:34 10/22/20 07:34 10/22/20 07:34 General appearance: no acute distress - Respiratory Respiratory effort: normal Respiratory: bilateral: CTA - Cardiovascular Rhythm: regular Heart Sounds: Present: S1 & S2 - Gastrointestinal General gastrointestinal: Present: soft, tender (Mild, epigastric), non- distended - Labs CBC & Chem 7: 10/22/20 04:48 10/22/20 04:48 Labs: Laboratory Results - last 24 hr 10/21/20 10/21/20 10/21/20 08:39 08:39 08:39 WBC 22.7 H RBC 5.26 H Hgb 13.2 Hct 41.4 MCV 79 MCH 25 L MCHC 32 RDW 17.4 H Plt Count 276 Lymph % (Auto) [place] % (Auto) Eos % (Auto) Baso % (Auto) Lymph # (Auto) [place] # (Auto) Eos # (Auto) Baso # (Auto) Add Manual Diff Complete Total Counted 100 Seg Neutrophils % Room Service Food Server Seg Neuts % (Manual) 84.0 H Band Neutrophils % 14.0 Lymphocytes % (Manual) 1.0 L Monocytes % (Manual) 1.0 Nucleated RBC % Not Reportable Seg Neutrophils # Seg Neutrophils # Man 19.1 H Band Neutrophils # 3.2 Lymphocytes # (Manual) 0.2 L Abs React Lymphs (Man) 0.0 Monocytes # (Manual) 0.2 Eosinophils # (Manual) 0.0 Basophils # (Manual) 0.0 Metamyelocytes # 0.0 Myelocytes # 0.0 Promyelocytes # 0.0 Blast Cells # 0.0 WBC Morphology Not Reportable Hypersegmented Neuts Not Reportable Hyposegmented Neuts Not Reportable Hypogranular Neuts Not Reportable Smudge Cells Not Reportable Toxic Granulation Not Reportable Toxic Vacuolation Not Reportable Dohle Bodies Not Reportable Pelger-Huet Anomaly Not Reportable Samantha Rods Not Reportable Platelet Estimate Consistent w auto Clumped Platelets Not Reportable Plt Clumps, EDTA Not Reportable Large Platelets Not Reportable Giant Platelets Not Reportable Platelet Satelliting Not Reportable Plt Morphology Comment Not Reportable RBC Morphology Not Reportable Dimorphic RBCs Not Reportable Polychromasia Not Reportable Hypochromasia 1+ Poikilocytosis Not Reportable Anisocytosis 1+ Microcytosis Not Reportable Macrocytosis Not Reportable Spherocytes Not Reportable Pappenheimer Bodies Not Reportable Sickle Cells Not Reportable Target Cells Not Reportable Tear Drop Cells Not Reportable Ovalocytes Not Reportable Helmet Cells Not Reportable [place] Bodies Not Reportable [place] Rings Not Reportable [place] Cells Not Reportable Bite Cells Not Reportable Crenated Cell Not Reportable Elliptocytes Not Reportable Acanthocytes (Spur) Not Reportable Rouleaux Not Reportable Hemoglobin C Crystals Not Reportable Schistocytes Not Reportable Malaria parasites Not Reportable Frank Bodies Not Reportable Hem Pathologist Commnt No PT 14.5 INR 1.08 Sodium Potassium Chloride Carbon Dioxide Anion Gap BUN Creatinine Estimated GFR BUN/Creatinine Ratio Glucose Calcium Total Bilirubin AST ALT Alkaline Phosphatase C-Reactive Protein Total Protein Albumin Albumin/Globulin Ratio Amylase 899 H Lipase 10/21/20 10/22/20 10/22/20 08:39 04:48 04:48 WBC 18.6 H RBC 4.70 Hgb 11.8 Hct 36.9 MCV 79 MCH 25 L MCHC 32 RDW 17.7 H Plt Count 234 Lymph % (Auto) 4.9 L [place] % (Auto) 6.0 Eos % (Auto) 0.0 Baso % (Auto) 0.2 Lymph # (Auto) 0.9 L [place] # (Auto) 1.1 H Eos # (Auto) 0.0 Baso # (Auto) 0.0 Add Manual Diff Total Counted Seg Neutrophils % 88.9 H Seg Neuts % (Manual) Band Neutrophils % Lymphocytes % (Manual) Monocytes % (Manual) Nucleated RBC % Seg Neutrophils # 16.6 H Seg Neutrophils # Man Band Neutrophils # Lymphocytes # (Manual) Abs React Lymphs (Man) Monocytes # (Manual) Eosinophils # (Manual) Basophils # (Manual) Metamyelocytes # Myelocytes # Promyelocytes # Blast Cells # WBC Morphology Hypersegmented Neuts Hyposegmented Neuts Hypogranular Neuts Smudge Cells Toxic Granulation Toxic Vacuolation Dohle Bodies Pelger-Huet Anomaly Samantha Rods Platelet Estimate Clumped Platelets Plt Clumps, EDTA Large Platelets Giant Platelets Platelet Satelliting Plt Morphology Comment RBC Morphology Dimorphic RBCs Polychromasia Hypochromasia Poikilocytosis Anisocytosis Microcytosis Macrocytosis Spherocytes Pappenheimer Bodies Sickle Cells Target Cells Tear Drop Cells Ovalocytes Helmet Cells [place] Bodies [place] Rings [place] Cells Bite Cells Crenated Cell Elliptocytes Acanthocytes (Spur) Rouleaux Hemoglobin C Crystals Schistocytes Malaria parasites Frank Bodies Hem Pathologist Commnt PT INR Sodium 137 135 L Potassium 3.8 D 3.9 Chloride 97.0 L 98.2 Carbon Dioxide 22 22 Anion Gap 22 19 BUN 33 H 42 H Creatinine 3.2 H D 3.2 H Estimated GFR 19 19 BUN/Creatinine Ratio 10 13 Glucose 124 H 152 H Calcium 7.5 L D 6.6 L Total Bilirubin 1.00 1.10 AST 23 17 ALT 16 14 Alkaline Phosphatase 96 87 C-Reactive Protein 33.50 H Total Protein 6.8 6.7 Albumin 3.3 L 2.9 L Albumin/Globulin Ratio 0.9 0.8 Amylase Lipase 1762 H 10/22/20 04:48 WBC RBC Hgb Hct MCV MCH MCHC RDW Plt Count Lymph % (Auto) [place] % (Auto) Eos % (Auto) Baso % (Auto) Lymph # (Auto) [place] # (Auto) Eos # (Auto) Baso # (Auto) Add Manual Diff Total Counted Seg Neutrophils % Seg Neuts % (Manual) Band Neutrophils % Lymphocytes % (Manual) Monocytes % (Manual) Nucleated RBC % Seg Neutrophils # Seg Neutrophils # Man Band Neutrophils # Lymphocytes # (Manual) Abs React Lymphs (Man) Monocytes # (Manual) Eosinophils # (Manual) Basophils # (Manual) Metamyelocytes # Myelocytes # Promyelocytes # Blast Cells # WBC Morphology Hypersegmented Neuts Hyposegmented Neuts Hypogranular Neuts Smudge Cells Toxic Granulation Toxic Vacuolation Dohle Bodies Pelger-Huet Anomaly Samantha Rods Platelet Estimate Clumped Platelets Plt Clumps, EDTA Large Platelets Giant Platelets Platelet Satelliting Plt Morphology Comment RBC Morphology Dimorphic RBCs Polychromasia Hypochromasia Poikilocytosis Anisocytosis Microcytosis Macrocytosis Spherocytes Pappenheimer Bodies Sickle Cells Target Cells Tear Drop Cells Ovalocytes Helmet Cells [place] Bodies [place] Rings [place] Cells Bite Cells Crenated Cell Elliptocytes Acanthocytes (Spur) Rouleaux Hemoglobin C Crystals Schistocytes Malaria parasites Frank Bodies Hem Pathologist Commnt PT INR Sodium Potassium Chloride Carbon Dioxide Anion Gap BUN Creatinine Estimated GFR BUN/Creatinine Ratio Glucose Calcium Total Bilirubin AST ALT Alkaline Phosphatase C-Reactive Protein Total Protein Albumin Albumin/Globulin Ratio Amylase 463 H Lipase 683 H
--- NOTE | 2020-10-22 09:52 | Electrocardiograph Report ---
[facility] Test Date: 2020-10-22 Test Time: 01:16:43 Pat Name: JEREMIAS MITTAL Department: Room: 18 1 Gender: F Battery Container Tester: NGHIA : [id number] Requested By: LAKESHA EWING Order Number: [id number] Reading MD: Vinicio Lee Measurements Intervals [place] Rate: 115 P: 26 [place]: 120 QRS: 40 QRSD: 71 T: 45 QT: 357 QTc: 495 Interpretive Statements Sinus tachycardia Probable left atrial enlargement Compared to ECG 10/19/2020 21:14:38 Sinus rhythm no longer present Electronically Signed On 10-22-2020 9:52:10 EDT by Vinicio Lee
[2020-10-22] MEDS: hydrALAZINE 20 MG/1 ML INJ IV PRN ×2 (12:54→22:40)
--- NOTE | 2020-10-22 14:48 | Progress Note ---
Assessment and Plan Assessment and plan: -- Acute pancreatitis Current Visit: Yes Status: Acute Clear liquids advance to full liquids as tolerated Continue IV fluid and IV analgesic medication. Will monitor lipase levels. Lipase trending down; [id number] [id number] --Hypertension/moderate control Current Visit: Yes Status: Acute Continue current antihypertensives As needed hydralazine, closely monitor -- Hypokalemia Current Visit: Yes Status: Acute Potassium repleted monitor electrolytes Check magnesium -- Leukocytosis Current Visit: Yes Status: Acute Possibly reactive. We will monitor labs. --DVT prophylaxis Current Visit: Yes Status: Acute Patient placed on subcutaneous heparin. -- Full code status Current Visit: Yes Status: Acute Patient is a full code. Closely monitor patient and adjust the management as needed Plan of care reviewed with the patient and her nurse GI recommendations noted 40-year-old female patient was admitted with acute pancreatitis With very high lipase, evaluated by GI, lipase levels and symptoms are trending down Started on clear liquids, advance to full liquids as tolerated 10/22/2020; patient feels slightly better Lipase levels trended from [id number] [id number] [id number] Advance the diet to full liquids Continue supportive care, possible discharge in 1 to 2 days if stable History Interval history: I seen and examined the patient at the bedside Patient's chart and medications reviewed No new events reported by the nursing Vital signs noted Patient continues to have abdominal pain Lipase levels trending down Advance diet to full liquids Hospitalist Physical - Constitutional Vitals: Temp Pulse Resp BP Pulse Ox 97.8 F 103 H 16 188/81 97 10/22/20 11:52 10/22/20 12:54 10/22/20 11:52 10/22/20 12:54 10/22/20 11:52 General appearance: Present: no acute distress, well-nourished, obese (Morbidly obese) - EENT Eyes: Present: PERRL, EOM intact - Neck Neck: Present: supple, normal ROM - Respiratory Respiratory effort: normal Respiratory: bilateral: diminished, negative: rales, rhonchi, wheezing - Cardiovascular Rhythm: regular Heart Sounds: Present: S1 & S2 - Extremities Extremities: no ischemia, No edema - Abdominal General gastrointestinal: soft, non-tender, non-distended, normal bowel sounds - Integumentary Integumentary: Present: clear, warm - Psychiatric Psychiatric: appropriate mood/affect, cooperative - Neurologic Neurologic: moves all extremities Results - Labs CBC & Chem 7: 10/23/20 09:47 10/22/20 04:48 Labs: Laboratory Last Values WBC 18.6 K/mm3 (4.5-11.0) H 10/22/20 04:48 RBC 4.70 M/mm3 (3.65-5.03) 10/22/20 04:48 Hgb 11.8 gm/dl (10.1-14.3) 10/22/20 04:48 Hct 36.9 % (30.3-42.9) 10/22/20 04:48 MCV 79 fl (79-97) 10/22/20 04:48 MCH 25 pg (28-32) L 10/22/20 04:48 MCHC 32 % (30-34) 10/22/20 04:48 RDW 17.7 % (13.2-15.2) H 10/22/20 04:48 Plt Count 234 K/mm3 (140-440) 10/22/20 04:48 Lymph % (Auto) 4.9 % (13.4-35.0) L 10/22/20 04:48 [place] % (Auto) 6.0 % (0.0-7.3) 10/22/20 04:48 Eos % (Auto) 0.0 % (0.0-4.3) 10/22/20 04:48 Baso % (Auto) 0.2 % (0.0-1.8) 10/22/20 04:48 Lymph # (Auto) 0.9 K/mm3 (1.2-5.4) L 10/22/20 04:48 [place] # (Auto) 1.1 K/mm3 (0.0-0.8) H 10/22/20 04:48 Eos # (Auto) 0.0 K/mm3 (0.0-0.4) 10/22/20 04:48 Baso # (Auto) 0.0 K/mm3 (0.0-0.1) 10/22/20 04:48 Add Manual Diff Complete 10/21/20 08:39 Total Counted 100 10/21/20 08:39 Seg Neutrophils % 88.9 % (40.0-70.0) H 10/22/20 04:48 Seg Neuts % (Manual) 84.0 % (40.0-70.0) H 10/21/20 08:39 Band Neutrophils % 14.0 % 10/21/20 08:39 Lymphocytes % (Manual) 1.0 % (13.4-35.0) L 10/21/20 08:39 Monocytes % (Manual) 1.0 % (0.0-7.3) 10/21/20 08:39 Nucleated RBC % Not Reportable 10/21/20 08:39 Seg Neutrophils # 16.6 K/mm3 (1.8-7.7) H 10/22/20 04:48 Seg Neutrophils # Man 19.1 K/mm3 (1.8-7.7) H 10/21/20 08:39 Band Neutrophils # 3.2 K/mm3 10/21/20 08:39 Lymphocytes # (Manual) 0.2 K/mm3 (1.2-5.4) L 10/21/20 08:39 Abs React Lymphs (Man) 0.0 K/mm3 10/21/20 08:39 Monocytes # (Manual) 0.2 K/mm3 (0.0-0.8) 10/21/20 08:39 Eosinophils # (Manual) 0.0 K/mm3 (0.0-0.4) 10/21/20 08:39 Basophils # (Manual) 0.0 K/mm3 (0.0-0.1) 10/21/20 08:39 Metamyelocytes # 0.0 K/mm3 10/21/20 08:39 Myelocytes # 0.0 K/mm3 10/21/20 08:39 Promyelocytes # 0.0 K/mm3 10/21/20 08:39 Blast Cells # 0.0 K/mm3 10/21/20 08:39 WBC Morphology Not Reportable 10/21/20 08:39 Hypersegmented Neuts Not Reportable 10/21/20 08:39 Hyposegmented Neuts Not Reportable 10/21/20 08:39 Hypogranular Neuts Not Reportable 10/21/20 08:39 Smudge Cells Not Reportable 10/21/20 08:39 Toxic Granulation Not Reportable 10/21/20 08:39 Toxic Vacuolation Not Reportable 10/21/20 08:39 Dohle Bodies Not Reportable 10/21/20 08:39 Pelger-Huet Anomaly Not Reportable 10/21/20 08:39 Samantha Rods Not Reportable 10/21/20 08:39 Platelet Estimate Consistent w auto 10/21/20 08:39 Clumped Platelets Not Reportable 10/21/20 08:39 Plt Clumps, EDTA Not Reportable 10/21/20 08:39 Large Platelets Not Reportable 10/21/20 08:39 Giant Platelets Not Reportable 10/21/20 08:39 Platelet Satelliting Not Reportable 10/21/20 08:39 Plt Morphology Comment Not Reportable 10/21/20 08:39 RBC Morphology Not Reportable 10/21/20 08:39 Dimorphic RBCs Not Reportable 10/21/20 08:39 Polychromasia Not Reportable 10/21/20 08:39 Hypochromasia 1+ 10/21/20 08:39 Poikilocytosis Not Reportable 10/21/20 08:39 Anisocytosis 1+ 10/21/20 08:39 Microcytosis Not Reportable 10/21/20 08:39 Macrocytosis Not Reportable 10/21/20 08:39 Spherocytes Not Reportable 10/21/20 08:39 Pappenheimer Bodies Not Reportable 10/21/20 08:39 Sickle Cells Not Reportable 10/21/20 08:39 Target Cells Not Reportable 10/21/20 08:39 Tear Drop Cells Not Reportable 10/21/20 08:39 Ovalocytes Not Reportable 10/21/20 08:39 Helmet Cells Not Reportable 10/21/20 08:39 [place] Bodies Not Reportable 10/21/20 08:39 [place] Rings Not Reportable 10/21/20 08:39 [place] Cells Not Reportable 10/21/20 08:39 Bite Cells Not Reportable 10/21/20 08:39 Crenated Cell Not Reportable 10/21/20 08:39 Elliptocytes Not Reportable 10/21/20 08:39 Acanthocytes (Spur) Not Reportable 10/21/20 08:39 Rouleaux Not Reportable 10/21/20 08:39 Hemoglobin C Crystals Not Reportable 10/21/20 08:39 Schistocytes Not Reportable 10/21/20 08:39 Malaria parasites Not Reportable 10/21/20 08:39 Frank Bodies Not Reportable 10/21/20 08:39 Hem Pathologist Commnt No 10/21/20 08:39 PT 14.5 Sec. (12.2-14.9) 10/21/20 08:39 INR 1.08 (0.87-1.13) 10/21/20 08:39 Sodium 135 mmol/L (137-145) L 10/22/20 04:48 Potassium 3.9 mmol/L (3.6-5.0) 10/22/20 04:48 Chloride 98.2 mmol/L (98-107) 10/22/20 04:48 Carbon Dioxide 22 mmol/L (22-30) 10/22/20 04:48 Anion Gap 19 mmol/L 10/22/20 04:48 BUN 42 mg/dL (7-17) H 10/22/20 04:48 Creatinine 3.2 mg/dL (0.6-1.2) H 10/22/20 04:48 Estimated GFR 19 ml/min 10/22/20 04:48 BUN/Creatinine Ratio 13 % 10/22/20 04:48 Glucose 152 mg/dL (65-100) H 10/22/20 04:48 Calcium 6.6 mg/dL (8.4-10.2) L 10/22/20 04:48 Total Bilirubin 1.10 mg/dL (0.1-1.2) 10/22/20 04:48 AST 17 units/L (5-40) 10/22/20 04:48 ALT 14 units/L (7-56) 10/22/20 04:48 Alkaline Phosphatase 87 units/L (35-129) 10/22/20 04:48 C-Reactive Protein 33.50 mg/dL (0.00-1.30) H 10/21/20 08:39 Total Protein 6.7 g/dL (6.3-8.2) 10/22/20 04:48 Albumin 2.9 g/dL (3.9-5) L 10/22/20 04:48 Albumin/Globulin Ratio 0.8 % 10/22/20 04:48 Amylase 463 units/L (27-131) H 10/22/20 04:48 Lipase 683 units/L (13-60) H 10/22/20 04:48 HCG, Qual Negative (Negative) 10/19/20 21:17 Thacker/IV: Voiding Method Toilet Active Medications - Current Medications Current Medications: Generic Name Dose Route Start Last Admin Trade Name Freq PRN Reason Stop Dose Admin Acetaminophen 650 mg 10/20/20 00:23 Acetaminophen 325 Mg Tab PO Q4H PRN Pain MILD(1-3)/Fever >100.5/RIVERS Heparin Sodium (Porcine) 5,000 unit 10/20/20 06:00 10/22/20 06:11 Heparin 5,000 Unit/1 Ml Vial SUB-Q 5,000 unit Q8HR RAJEEV Administration Hydralazine HCl 10 mg 10/20/20 02:58 10/22/20 12:54 Hydralazine 20 Mg/1 Ml Inj IV 10 mg Q4H PRN Administration Blood Pressure Hydromorphone HCl 1 mg 10/20/20 00:23 10/22/20 12:49 Hydromorphone 1 Mg/1 Ml Inj IV 1 mg Q4H PRN Administration Pain , Severe (7-10) Sodium Chloride 1,000 mls @ 150 mls/hr 10/20/20 00:30 10/22/20 08:49 Nacl 0.9% 1000 Ml IV 150 mls/hr DIRECT RAJEEV Administration Piperacillin Sod/Tazobactam Sod 3.375 gm in 50 mls @ 100 mls/hr 10/22/20 06:00 10/22/20 06:10 Zosyn/Ns 3.375gm/50ml IV 100 mls/hr Q8HR RAJEEV Administration Protocol Magnesium Hydroxide 30 ml 10/20/20 00:23 10/22/20 06:10 Magnesium Hydroxide (Mom) Oral Liqd Udc PO 30 ml Q4H PRN Administration Constipation Morphine Sulfate 2 mg 10/20/20 00:23 10/22/20 08:49 Morphine 2 Mg/1 Ml Inj IV 2 mg Q4H PRN Administration Pain, Moderate (4-6) Ondansetron HCl 4 mg 10/20/20 00:23 10/20/20 04:38 Ondansetron 4 Mg/2 Ml Inj IV 4 mg Q8H PRN Administration Nausea And Vomiting Sodium Chloride 10 ml 10/20/20 10:00 10/22/20 12:59 Sodium Chloride 0.9% 10 Ml Flush Syringe IV Not Given BID RAJEEV Sodium Chloride 10 ml 10/20/20 00:23 Sodium Chloride 0.9% 10 Ml Flush Syringe IV PRN PRN LINE FLUSH
[2020-10-22 17:29] LABS: C-Reactive Protein 35.3 mg/dL (0.00-1.30)
[2020-10-22] MEDS ORDERED: ALBUTEROL 8.5 GM MDI INHALATION IH PRN (19:04)
[2020-10-22] MEDS ORDERED: ALBUTEROL 2.5 MG/3 ML NEBU IH PRN (19:14)
[2020-10-22] MEDS: ONDANSETRON 4 MG/2 ML INJ IV PRN (22:27)
[2020-10-23] MEDS: HYDROmorphone 1 MG/1 ML INJ IV PRN ×2 (01:07→07:12)
[2020-10-23] MEDS: MORPHINE 2 MG/1 ML INJ IV PRN (03:36)
[2020-10-23] MEDS: HEPARIN 5,000 UNIT/1 ML VIAL SUB-Q SCH (05:36)
[2020-10-23] MEDS: PIPERACILLIN/TAZOBACTAM 3.375 3.375 GM/50 ML BAG IV SCH (05:53)
[2020-10-23] MEDS: hydrALAZINE 20 MG/1 ML INJ IV PRN (07:15)
[2020-10-23] MEDS ORDERED: oxyCODONE /ACETAMINOPHEN 5-325MG TAB PO PRN (10:00)
[2020-10-23 10:22] LABS: Basophils # (Auto) 0.1 K/mm3 (0.0-0.1); Basophils % (Auto) 0.4 % (0.0-1.8); Eosinophils % (Auto) 0.3 % (0.0-4.3); Hematocrit 33.3 % (30.3-42.9); Hemoglobin 10.5 gm/dl (10.1-14.3); Lymphocytes # (Auto) 0.9 K/mm3 (1.2-5.4); Lymphocytes % (Auto) 6.1 % (13.4-35.0); Mean Corpuscular HGB Conc 31 % (30-34); Mean Corpuscular Volume 78 fl (79-97); Monocytes # (Auto) 0.9 K/mm3 (0.0-0.8); Monocytes % (Auto) 6.7 % (0.0-7.3); Platelet Count 223 K/mm3 (140-440); Red Blood Count 4.27 M/mm3 (3.65-5.03)
[2020-10-23 11:26] VITALS: BP 128/72
--- NOTE | 2020-10-23 11:44 | Discharge Summary ---
Providers - Providers Date of Admission: 10/20/20 12:00 Date of discharge: 10/23/20 Attending physician: AMARIS CARRANZA 10/20/20 00:36 Consult to Physician [CONS] Routine Comment: Consulting Provider: HAJA WATKINS Physician Instructions: Reason For Exam: ACUTE PANCREATITIS 10/20/20 16:09 Physical Therapy Evaluation and Treat [CONS] Routine Comment: Weakness Reason For Exam: Eval & Treat Primary care physician: LUMBER SORTER MACHINE Hospitalization Reason for admission: Abdominal pain nausea vomiting/acute pancreatitis Condition: Stable Pertinent studies: CT abdomen and pelvis:-moderate peripancreatic inflammation stranding and an encapsulated peripancreatic fluid compatible with acute interstitial pancrea titis Hepatic steatosis and hepatomegaly Abdominal ultrasound: the pancreas is poorly visualized from overlying bowel gas and fatty liver Hospital course: 40-year-old -[place] female patient with significant past medical history of -induced hypertension preeclampsia was admitted to emergency room with severe abdominal pain after eating meatballs for lunch. Initial evaluation is consistent with acute pancreatitis, admitted symptomatically managed with n.p.o. status IV fluids pain medications., Patient was subsequently evaluated by GI, medications optimized, CT abdomen and pelvis as well as abdominal ultrasound findings consistent with acute pancreatitis, Patient was symptomatically managed and monitored pancreatic enzymes Slowly but gradually improved today patient is comfortable no new complaints vital signs stable, Patient is hemodynamically and clinically stable at discharge Patient strongly advised to avoid fatty and meaty foods and advised to follow with primary care physician as well as GI per schedule patient verbalized understanding patient is hemodynamic fully and clinically stable at discharge patient also advised to quit alcohol intake or seek alcohol rehabilitation as needed patient is stable at discharge. Patient is morbidly obese, advised diet modification exercise as tolerated and weight reduction as tolerated and when medically stable, patient also advised to see bariatric surgeon for weight reduction program as well as advised to see automobile mechanic radiator for outpatient sleep study to rule out obstructive sleep apnea. Patient verbalized understanding. Patient is hemodynamically and clinically stable at discharge Discharge diagnosis: -- Acute pancreatitis Current Visit: Yes Status: Acute Clear liquids advance to full liquids as tolerated Continue IV fluid and IV analgesic medication. Will monitor lipase levels. Lipase trending down; [id number] --Hypertension/moderate control Current Visit: Yes Status: Acute Continue current antihypertensives As needed hydralazine, closely monitor -- Hypokalemia Current Visit: Yes Status: Acute Potassium repleted monitor electrolytes Check magnesium -- Leukocytosis Current Visit: Yes Status: Acute Possibly reactive. We will monitor labs. --DVT prophylaxis Current Visit: Yes Status: Acute Patient placed on subcutaneous heparin. -- Full code status Current Visit: Yes Status: Acute Patient is a full code. Stable at discharge Cleared by consultants for discharge and follow-up as outpatient Disposition: DC-01 TO HOME OR SELFCARE Final Discharge Diagnosis (Prints w/discharge instructions): Acute pancreatitis. Hypertension. Hypokalemia resolved. Leukocytosis. Morbid obesity BMI 46.2 Time spent for discharge: 35 min Core Measure Documentation - Palliative Care Palliative Care/ Comfort Measures: Not Applicable - Core Measures Any of the following diagnoses?: none Exam - Constitutional Vitals: Temp Pulse Resp BP Pulse Ox 97.6 F 99 H 18 128/72 95 10/23/20 07:18 10/23/20 07:18 10/23/20 09:59 10/23/20 07:18 10/23/20 07:18 General appearance: Present: no acute distress, well-nourished - EENT Eyes: Present: PERRL - Neck Neck: Present: supple, normal ROM Plan Activity: no restrictions Diet: other (Continue full liquids, advance to soft diet as tolerated) Additional Instructions: Advance diet slowly as tolerated. If you have worsening symptoms contact MD or go to the nearest emergency room. Advised diet modification, exercise as tolerated and weight reduction when you are medically stable Follow up with: PRIMARY CARE, [Primary Care Provider] - 7 Days HAJA WATKINS MD [Staff Physician] - 7 Days Prescriptions: Amoxicillin/Potassium Clav [Augmentin 875-125 Tablet] 1 each PO BID #8 tablet oxyCODONE /ACETAMINOPHEN [Percocet 5/325 mg] 1 tab PO BID PRN #10 tablet PRN Reason: Pain , Severe (7-10) Pantoprazole Sodium [Protonix] 40 mg PO DAILY #14 granpkt.
[2020-10-24 11:57] LABS: ANA Screen, IFA Positive (Negative)
== END 2020-10-23 15:05 | disposition home or self-care (01) | DRG 439 ==
LOC: ED 20:40 → 3B-SURG 10-20 00:23 → OBSVTOIN 10-20 12:00
PROVIDERS: ADMIT Internal Medicine Geriatric Medicine; ATTEND Internal Medicine
DX: K85.90 Acute pancreatitis without necrosis or infection, unspecified (principal); Z68.42 Body mass index [BMI] 45.0-49.9, adult; I10 Essential (primary) hypertension; E87.6 Hypokalemia; D72.829 Elevated white blood cell count, unspecified; E66.01 Morbid (severe) obesity due to excess calories; F10.10 Alcohol abuse, uncomplicated; J45.909 Unspecified asthma, uncomplicated; Z82.49 Family history of ischemic heart disease and other diseases of the circulatory system; Z79.899 Other long term (current) drug therapy
CPT/HCPCS: 36415; 74176; 76705; 80053; 82150; 83690; 84703; 85007; 85025; 85610; 86038; 86140; 93005; 96374; G0378; J0360; J1170; J1644; J2270; J2405; J2543; J3480; J7030